=== PATIENT | female | born 1950 | race Caucasian/White ===

== ENCOUNTER 2016-08-05 09:45 | Day surgery (SDC) | payer MEDICARE, MEDICAID ==
[2016-08-05] MEDS ORDERED: CYMBALTA60 M1 PO (11:36)
[2016-08-05] MEDS ORDERED: VITAMIN D35000 UNI3 PO (11:37)
[2016-08-05] MEDS ORDERED: ASPIRIN325 M3 PO (11:37)
[2016-08-05] MEDS ORDERED: LASIX20 M1 PO (11:39)
[2016-08-05] MEDS ORDERED: VITAMIN AND MI1 EACH PO (11:39)
[2016-08-05] MEDS ORDERED: LINZESS145 MC1 PO (11:40)
[2016-08-05] MEDS ORDERED: TYLENOL325 M2 PO (11:41)
[2016-08-05] MEDS ORDERED: ACTOS30 M1 PO (11:41)
[2016-08-05] MEDS ORDERED: LIPITOR40 M1 PO (11:41)
[2016-08-05] MEDS ORDERED: NORVASC5 M2 PO (11:42)
[2016-08-05 11:43] LABS: BASO % 0.2 % (0-2); EOSINOPHIL ABSOLUTE COUNT 0.3 tho/cmm (0.0-0.7); HCT-HEMATOCRIT 33.9 % (34.0-49.0); HGB-HEMOGLOBIN 11.1 gm/dl (12.0-15.5); IMMATURE GRANULOCYTES ABSOLUTE 0.03 tho/cmm (0-0.03); IMMATURE GRANULOCYTES PERCENT 0.3 % (0-0.3); LYMPH % 29.1 % (20-45); LYMPH ABSOLUTE COUNT 2.5 tho/cmm (0.8-4.5); MCHC MEAN CORPUSCULAR HGB CONC 32.7 % (32.0-36.0); MCV (MEAN CELL VOLUME) 97.7 fl (82.0-96.0); MEAN PLATELET VOLUME 10.5 cmc (9.4-12.4); MONO % 7.4 % (0-12); MONOCYTE ABSOLUTE COUNT 0.7 tho/cmm (0.0-1.2); NEUTROPHIL ABSOLUTE COUNT 5.2 tho/cmm (1.6-8.0); NEUTROPHIL-AUTOMATED 5.2 tho/cmm (1.6-8.0); PLATELET COUNT 195 tho/cmm (150-450); RED BLOOD COUNT 3.47 mil/cmm (4.00-5.20); RED CELL DISTRIBUTION WIDTH 12.9 % (12.4-16.4); WHITE BLOOD COUNT 8.7 tho/cmm (4.0-10.0)
[2016-08-05] MEDS ORDERED: MELATONIN5 M5 PO (11:43)
[2016-08-05] MEDS ORDERED: LANTUS100 UNITS/ SC (11:46)
[2016-08-05] MEDS ORDERED: HUMALOG100 UNITS/ SC (11:48)
[2016-08-05 12:08] LABS: PROTHROMBIN TIME 11.4 SECONDS (9.0-13.6)
[2016-08-05 12:16] LABS: ANION GAP 16 mmol/L (0-20); BLOOD UREA NITROGEN 65 mg/dl (6-24); CALCIUM 9.1 mg/dl (8.5-10.5); CARBON DIOXIDE-VENOUS 23 mmol/L (22-32); CHLORIDE 108 mmol/l (96-110); GLUCOSE 127 mg/dL (70-110); SODIUM 142 mmol/L (135-145); eGFR VALUE FOR BLACK 22 mL/Min
[2016-08-05 12:17] LABS: POTASSIUM 5.1 mmol/L (3.7-5.1)
[2016-08-05] MEDS ORDERED: BYSTOLIC5 M1 PO (14:03)
== END 2016-08-05 17:30 ==
LOC: SHSB 09:45 → ORW 12:21 → SHSB 13:53
PROVIDERS: Surgery Vascular Surgery
DX: I12.9 Hypertensive chronic kidney disease with stage 1 through stage 4 chronic kidney disease, or unspecified chronic kidney disease (principal); E11.22 Type 2 diabetes mellitus with diabetic chronic kidney disease; N18.4 Chronic kidney disease, stage 4 (severe); E11.65 Type 2 diabetes mellitus with hyperglycemia; R60.0 Localized edema; R42 Dizziness and giddiness; N25.81 Secondary hyperparathyroidism of renal origin; Z79.82 Long term (current) use of aspirin; Z79.4 Long term (current) use of insulin; Z79.84 Long term (current) use of oral hypoglycemic drugs; Z79.899 Other long term (current) drug therapy; Z86.718 Personal history of other venous thrombosis and embolism; Z98.890 Other specified postprocedural states
CPT/HCPCS: J0690; J1644; J2250; J7030